=== PATIENT | female | born 1990 | race Caucasian/White ===

== ENCOUNTER → 2018-09-01 13:19 | Outpatient (CLI) | payer BC, SELFPAY ==
--- NOTE | 2018-09-01 13:23 | CA_ITS ---
PROCEDURE: 2-D M-mode and color Doppler study INDICATIONS FOR THE TEST: Chest pain + COPD Heart Murmur Tobacco Smokingex Palpitations Fatigue Syncope Edema+ Hypertension+Diabetes Mellitus Rheumatic Fever SOB+WHEELER Obesity+Hyperlipidemia Family History HD Additional History abn ekg TDS R/T BODY HABITUS PATIENT INFORMATION HEIGHT:71 WEIGHT:310 GENDER: Female B/P:158/106 2-D/M-MODE INTERPRETATION: 2-D MEASUREMENTS OBSERVED VALUES IN CMS Right Ventricular Dimension (RVDd) 2.0 Interventricular Septum (Thickness)(IVsd) 0.8 Left Ventricular Internal Dimensions(LVIDd) 5.6 Left Ventricular Posterior Wall (Thickness)(LVPWd) 1.0 Aortic Root 3.6 Aortic Cusp Separation 2.5 Left Atrial Dimensions (LAD) 3.9 2D 1. Left atrium is upper limit of normal size, left ventricle is normal size, visually estimated ejection fraction 55% with no regional wall motion abnormality, there is no concentric left ventricular hypertrophy. 2. The right atrium and right ventricle are relatively normal size and function. 3. The aortic, mitral and tricuspid valve are grossly normal. 4. The pulmonic valve is poorly visualized. 5. No significant pericardial effusion noted. DOPPLER INTERROGATION: Doppler interrogation of the aortic, mitral and tricuspid valvular presence of mild mitral and tricuspid regurgitation, tricuspid regurgitation jet velocity is inadequate for calculation of the right ventricular systolic pressure. Diastolic parameters are within normal range. CONCLUSION: 1. Normal left ventricular size, preserved left ventricular systolic function, visually estimated ejection fraction 55% with no regional wall motion abnormality, there is no concentric left ventricular hypertrophy present. Diastolic parameters are within normal range. 2. Mild mitral and tricuspid regurgitation 3. No significant pericardial effusion noted.
== END ==
PROVIDERS: PCP Family Medicine; Visit Provider Internal Medicine
DX: R06.09 Other forms of dyspnea (principal); I10 Essential (primary) hypertension; R07.89 Other chest pain; R94.31 Abnormal electrocardiogram [ECG] [EKG]; Z82.49 Family history of ischemic heart disease and other diseases of the circulatory system; Z87.891 Personal history of nicotine dependence
CPT/HCPCS: 93017; 93306

== ENCOUNTER → 2018-09-04 07:53 | Outpatient (CLI) | payer BC, SELFPAY ==
--- NOTE | 2018-09-04 07:55 | AS_ITS ---
Renal Arterial Duplex Indications: 405.91 Unspecified renovascular hypertension. IMPRESSIONS 1. Normal bilateral renal artery evaluation. 2. The right renal artery appears normal. 3. The left renal artery appears normal. 2cm left renal cyst with some irregularity of margins. Suggest 3month ultrasound follow up History: Risk factors: Hypertension. Obese. Complete renal arterial duplex. Duplex scan and Doppler flow study including spectral analysis, color and schuler scale imaging. Height: Height: 180.3cm. Height: 71in. Weight: Weight: 140.6kg. Weight: 309.4lb. Body mass index: BMI: 43.2kg/m^2. Body surface area: BSA: 2.72m^2. Location: Vascular laboratory. Patient status: Outpatient. Findings: Cyst in the left mid pole cortex. Dimensions: 2cm (L). Tables: Arterial flow: + +--------+--------+ Location V sys V ed + +--------+--------+ Right renal - proximal 108cm/s 35.2cm/s + +--------+--------+ Right renal - mid 140cm/s 59.3cm/s + +--------+--------+ Right renal - distal 103cm/s 37.2cm/s + +--------+--------+ Left renal - proximal 103cm/s 20.5cm/s + +--------+--------+ Left renal - mid 111cm/s 13.2cm/s + +--------+--------+ Left renal - distal 121cm/s 43.6cm/s + +--------+--------+ Right renal-origin 111cm/s 34.2cm/s + +--------+--------+ Left renal-origin 91.9cm/s 35.2cm/s + +--------+--------+ Aorta-prox 145cm/s -------- + +--------+--------+ Renal anatomy: + +------+------+ Left Right + +------+------+ Long axis 13.5cm 12.5cm + +------+------+ Short axis 7cm 8.3cm + +------+------+ Cortical thickness 1.9cm 1.8cm + +------+------+ Velocity ratios: + +-----+ V sys + +-----+ Right renal/aortic 1 + +-----+ Left renal/aortic 0.8 + +-----+ (Report amended ) Electronically signed by: Grzegorz Rodrigez [id number]
== END ==
PROVIDERS: PCP Family Medicine; Visit Provider Internal Medicine
DX: I10 Essential (primary) hypertension (principal); R07.89 Other chest pain; R06.09 Other forms of dyspnea; R94.31 Abnormal electrocardiogram [ECG] [EKG]; Z82.49 Family history of ischemic heart disease and other diseases of the circulatory system; Z87.891 Personal history of nicotine dependence
CPT/HCPCS: 93976

== ENCOUNTER → 2018-09-08 17:15 | Outpatient (CLI) | payer BC, SELFPAY | PROVIDERS: PCP Family Medicine; Visit Provider Family Medicine | DX: G47.30 Sleep apnea, unspecified (principal); G47.10 Hypersomnia, unspecified; I10 Essential (primary) hypertension; E66.9 Obesity, unspecified | CPT/HCPCS: G0399 ==

== ENCOUNTER → 2022-08-10 17:13 | Outpatient (CLI) | payer BC, SELFPAY ==
--- NOTE | 2022-08-10 17:18 | US_ITS ---
FINAL REPORT TECHNIQUE: Limited sonographic images of the thyroid were obtained. CLINICAL HISTORY: THYROID NODULE FINDINGS: There is a mildly heterogeneous thyroid parenchyma. The right lobe of the thyroid measures 1.2 x 1.4 x 5.4 cm. There are several tiny calcified nodules measuring up to 2 mm in greatest dimension consistent with TI-RADS category 4. The left lobe of the thyroid measures 3.3 x 4.1. There is a dominant, complex heterogeneous mass which is mixed cystic and solid measuring 5.3 x 2.9 cm consistent with TI-RADS category 3. The remainder of the left lobe is unremarkable. The isthmus measures 0.53 cm. IMPRESSION: Dominant nodule in the left thyroid lobe consistent with TI-RADS category 3. Recommend needle sampling. Reviewed, Interpreted and Dictated by Mati Monique MD Transcribed by Daniela Aguirre Authenticated and [facility]
== END ==
LOC: RAD 17:14
PROVIDERS: PCP Family Medicine; Visit Provider Family Medicine
DX: E04.1 Nontoxic single thyroid nodule (principal)
CPT/HCPCS: 76536

== ENCOUNTER → 2022-08-18 07:46 | Outpatient (CLI) | payer BC, SELFPAY ==
--- NOTE | 2022-08-18 07:50 | US_ITS ---
FINAL REPORT CLINICAL HISTORY: THYROID NODULE FNA left lobe Weston VILLARREAL FINDINGS: ULTRASOUND GUIDED THYROID BIOPSY HISTORY: Left thyroid mass. TECHNIQUE: Informed consent was obtained from the patient. Timeout procedure was performed prior to beginning. Limited sonographic evaluation of thyroid gland was performed to localize lesion of interest. The neck was prepped in a routine sterile fashion and locally anesthetized with 1% lidocaine. Initially, approximately 12 mL of fluid was aspirated and sent to the laboratory for analysis. FNA was performed with 25-gauge needle under direct sonographic visualization. 4 passes were made. Cytology is pending. Procedure was well tolerated. CONCLUSION: 1. Technically successful thyroid fine needle aspiration of a left thyroid mass. Reviewed, Interpreted and Dictated by Dedrick Saleh III, MD Transcribed by Kayla Crow PA-C Authenticated and [facility]
== END ==
LOC: RAD 07:46
PROVIDERS: PCP Family Medicine; Visit Provider Family Medicine
DX: E04.1 Nontoxic single thyroid nodule (principal)
CPT/HCPCS: 10021; 76536; 76942

== ENCOUNTER → 2023-01-18 14:19 | Outpatient (CLI) | payer BC, SELFPAY ==
[2023-01-18 14:56] LABS: Basophils % 0.4 % (0.1-2.0); Eosinophils # 0.2 K/mm3 (0.0-0.4); Eosinophils % 1.7 % (0.1-12.0); Hematocrit 42.8 % (37.0-47.0); Lymphocytes # 2.8 K/mm3 (0.7-4.5); Lymphocytes % 30.3 % (10-50); Mean Corpuscular HGB Conc 32.6 g/dL (31.8-35.4); Mean Corpuscular Hemoglobin 28.7 pg (27.0-31.2); Mean Corpuscular Volume 87.9 fl (81-99); Mean Platelet Volume 7.4 fl (7.4-10.4); Monocytes # 0.6 K/mm3 (0.1-1.0); Neutrophils # 5.8 K/mm3 (1.8-7.8); Neutrophils % 61.7 % (37.0-80.0); Platelet Count 274 K/mm3 (142-424); Red Blood Count 4.87 M/mm3 (4.20-5.40); Red Cell Distribution Width 12.9 % (11.5-17.5); White Blood Count 9.4 K/mm3 (4.8-10.8)
[2023-01-18 15:10] LABS: Hemoglobin A1C 5.7 % (4.0-6.0)
== END ==
PROVIDERS: PCP Family Medicine; Visit Provider Obstetrics & Gynecology Reproductive Endocrinology
DX: N91.3 Primary oligomenorrhea (principal); N92.5 Other specified irregular menstruation
CPT/HCPCS: 36415; 83036; 85025; 86850

== ENCOUNTER 2025-03-29 08:31 | Outpatient (CLI) | payer BC, SELFPAY ==
--- OUTSIDE RECORDS SUMMARY | 2023-10-19 10:30 | XMS_ITS ---
Author Organization Susy Address [address] [facility] [address] [place] [phone] Care Team Providers Care Delimer Name Role Phone Missael Wilson Primary Care Provider Allergies Allergen (clinical drug ingredient) Drug/Non Drug Allergy documented on EMR Reaction Allergy Type Onset Date Status metformin metFORMIN diarrhea Drug Allergy Active REASON FOR VISIT blood pressure running high Medications Medication SIG (Take, Route, Frequency, Duration) Notes Start Date End Date Status busPIRone HCl 7.5 MG 1 tablet Orally Twice a day; Duration: 30 day(s) 10/19/2023 Active medroxyPROGESTERone Acetate 10 MG 1 tab(s) orally once a day; Duration: 10 day(s) Not-Taking Citalopram Hydrobromide 40 MG 1 tab(s) o rally once a day; Duration: 90 days Active Labetalol HCl 100 MG 1 tablet Orally Twice a day; Duration: 30 day(s) 10/19/2023 Active amLODIPine Besylate 10 MG 1 tab(s) orall y once a day Active metFORMIN HCl ER 500 MG 1 tab(s) orally once a day; Duration: 90 days Active Melatonin 5 MG as directed Orally 07/29/2023 Active Vital Signs Weight 285.4 lbs 10/19/2023 Blood pressure systolic 154 mm Hg 10/19/19 24 Blood pressure diastolic 98 mm Hg 024 Heart Rate 116 /min 10/19/2023 Height 70 in 10/19/2023 BMI 40.95 kg/m2 10/19/2023 Encounters Encounter Location Date Provider Diagnosis [facility] [address] [place] [phone] 10/19/2023 Missael Wilson Essential hypertensi on I10 and Anxiety F41.9 Assessments Encounter Date Diagnosis (ICD Code) Assessment Notes Treatment Notes Treatment Clinical Notes Section Notes 10/19/2023 Essential hypertension (ICD-10 - I10) 10/19/2023 Anxiety (ICD-10 - F41.9) Plan Of Treatment Medication Medication Name Sig Start Date Stop Date Notes busPIRone HCl 7.5 MG 1 tablet Orally Twi ce a day; Duration: 30 day(s) 10/19/2023 Labetalol HCl 100 MG 1 tablet Orally Twi ce a day; Duration: 30 day(s) 10/19/2023 amLODIPine Besylate 10 MG 1 tab(s) orally once a day Next Appt Details Follow Up: via phone to repo rt progress, Reason: Provider Name:Missael Cornelius ry, 04/17/2025 09:00:00 AM, [address] [facility] [address], [place], [place], [phone], Progress Notes * Jessica STANFORDDOB:[birth year] (34 yo F)Acc No.[id number]:10/19/2023 Progress Notes Patient: Leigh ELLINGTONecca Provider: Nano Wilson M.D. :1990 A ge:33 Y S ex:Female Date:10/19/2023 Address:[address] [place] [address], [place], [id number] Subjective: * Chief Complaints: * 1 . Blood pressure running high. * HPI: C ardiology: 33 year old female presents with c/o Blood Pressure Elevated?Pt complains of elevated bp for 2-3 weeks. States she has been getting chest pain off and on as well. Pt does have log with her today. Pt would like new bp medication. P sychology: c/o Anxiety P t would like to change Citalopram to a different medication today. States it is causing heart palpitations and she cannot just stop taking it.? * ROS: D ERMATOLOGY: no R elizabeth. n o H prabhjot. G ASTROENTEROLOGY: no N ausea. n o V omiting. U ROLOGY: no D ifficulty urinating. n o B lood in urine. * Medical History: H ypertension, 2010, Type 2 Diabetes, 2020, Depression, Anxiety, Insomnia. * Surgical History: D ental Surgery 06/2015, LT Chest Lipoma Removal 05/2018. * Hospitalization/Major Diagno stic Procedure: H igh Blood Pressure- [facility] ER 10/28/2014. * Family History: F ather: alive 50 yrs, HBP, Diabetes. M other: alive 51 yrs, bad back. 2 brother(s) . . * Social History: C URRENT TOBACCO USE S moking Status: P atient does smoke, p acks per day: 1 ,?number of cigarettes per day: 1 5, S palmer age of: 1 8, S moking preference: cigarettes. C affeine: yes, frequency: Diet Pepsi or Diet Coke on occasion. Home smoke detector use: yes. Past smoking status: yes, PPD: 1/2 ppd. qd , years: 4 ,determination:. Alcohol: No. * Medications: T aking metFORMIN HCl ER 500 MG Tablet Extended Release 24 Hour 1 tab(s) orally once a day , Taking amLODIPine Besylate 10 MG Tablet 1 tab(s) orally once a day , Taking Melatonin 5 MG Tablet Disintegrating as directed Orally , Taking Citalopram Hydrobromide 40 MG Tablet 1 tab(s) orally once a day , Not-Taking medroxyPROGESTERone Acetate 10 MG Tablet 1 tab(s) orally once a day , Medication List reviewed and reconciled with the patient * Allergies: m etFORMIN: diarrhea - Side Effects. Objective: * Vitals: W t:285.4, Temp:98.0, BP:154/98, HR:116, Nurse:kush, Ht: 70, BMI:40.95. * Examination: P sychology: General Appearance: N AD. G rooming : a dequate.?Eye contact : tori lambert. M ood : p leasant. H eart: R SR. L ungs: c lear to auscultation. Assessment: * Assessment: 1. E ssential hypertension - I10 (Primary) 2 . A nxiety - F41.9 ? Plan: * Treatment: 2. A nxiety Start busPIRone HCl Tablet, 7.5 MG, 1 tablet, Orally, Twice a day, 30 day(s), 60 Tablet, Refills 0.? * Follow Up: v ia phone to report progress * Images: Billing Information: * Visit Code: 63625 Office Visit, Est Pt., Level 3. * Procedure Codes: * Electronic signature of Madison Wilson MD on 03/29/2025 at 08:33 AM EST Sign off status: Pending * Provider: Nano Wilson M.D. Date: 0 10/19/2023 Generated for Demetrio zimmer/Renaldo/Checosmitting on: 05/29/2024 08:33 AM EST History and Physical Notes * HPI (History of Present Illness) Category Sub-Category Detail Notes Category Not es Cardiology Blood Pressure Elevated Pt compl ains of elevated bp for 2-3 weeks. States she has been getting chest pain off and on as well. Pt does have log with her today. Pt would like new bp medication Psychology Anxiety Pt would like to change Citalopram to a different medication today. States it is causing heart palpitations and she cannot just stop taking it Examination Category Sub-Category Detail Notes Category Not es Psychology Heart: RSR Lungs: clear to auscultatio n General Appearance: NAD Grooming : adequate Eye contact : normal Mood : pleasant
--- OUTSIDE RECORDS SUMMARY | 2024-02-07 05:30 | XMS_ITS ---
Author Organization Jelly Address [address] [facility] [address] [facility] [address] [place] [phone] Care Team Providers Care Tractor Driver Name Role Phone Missael Wilson Primary Care Provider REASON FOR VISIT 6 Month Check Up Encounters Encounter Location Date Provider Diagnosis [facility] [address] [facility] 36 [facility] [address] [place] [phone] 02/07/2024 Missael Wilson Plan Of Treatment Next Appt Details Provider Name:Missael Cornelius ry, 04/17/2025 09:00:00 AM, [address] [facility] [address] [facility], [address], [place], [place], [phone], Progress Notes * Jessica STANFORDDOB:[birth year] (34 yo F)Acc No.[id number]:02/07/2024 Progress Notes Patient: Jessica ELLINGTON Provider: Nano Wilson M.D. :1990 A ge:33 Y S ex:Female Date:02/07/2024 Address:[address], [id number] Subjective: * Chief Complaints: * 1 . 6 Month Check Up. * Medical History: Objective: * Vitals: Assessment: Plan: * Treatment: * Images: Billing Information: * Visit Code: * Procedure Codes: * Electronic signature of Madison Wilson MD on 03/29/2025 at 08:33 AM EST Sign off status: Pending * Provider: Nano Wilson M.D. Date: Generated for Demetrio zimmer/Renaldo/eTransmitting on: 1 05/29/2024 08:33 AM EST
--- OUTSIDE RECORDS SUMMARY | 2024-10-12 09:00 | XMS_ITS ---
Author Organization [facility] Address [address] [facility] [address] [place] [id number] Care Team Providers Care User Experience Team Lead Name Role Phone Missael Wilson Primary Care Provider [phone] Allergies Allergen (clinical drug ingredient) Drug/Non Drug Allergy documented on EMR Reaction Allergy Type Onset Date Status metformin metFORMIN diarrhea Drug Allergy Active Results Component Value Reference Range Notes Glucose (In-House) Reviewed date:10/14/2024 06:12:55 PM Interpretation:111 Normal Performing Lab: Notes/Report: 111 Normal blood glucose 111 74 - 106 mg/dL Glycohemoglobin A1c (in hous e) Reviewed date:10/14/2024 06:12:55 PM Interpretation:5.9% Normal Performing Lab: Notes/Report: 5.9% Normal glycohemoglobin 5.9% 5 - 6.5 % P-Comprehensive Metabolic Pa ivan (CMP) Reviewed date:10/14/2024 06:12:55 PM Interpretation: Normal Performing Lab: Notes/Report: Test performed by [facility], [facility] [facility] , [address], [place] [address] Joe Hurtado MD, Res Habilitation Assistant CLIA: [id number] Sodium 137 135-145 mmol/L Potassium 4.0 3.5-5.3 mmol/L Chloride 99 97-108 mmol/L CO2 23 22-32 mmol/L Glucose 105 65-99 mg/dL BUN 12 6-20 mg/dL Creatinine 0.77 0.50-1.00 mg/dL Calcium 9.7 8.6-10.4 mg/dL eGFR by Creatinine 102 >59 mL/min/1.73m2 Protein 6.8 6.0-8.3 g/dL Albumin 4.7 3.5-5.3 g/dL Alkaline Phosphatase 65 35-121 IU/L ALT (SGPT) 16 <5-47 IU/L AST (SGOT) 19 <5-40 IU/L Bilirubin, Total 0.4 <0.2-1.2 mg/dL A/G Ratio 2.2 1.1-2.5 P-Lipid Panel Reviewed date:10/14/2024 06:12:55 PM Interpretation:Abnormal Performing Lab: Notes/Report: Test performed by [facility] [address] , [place] [address] Joe Hurtado MD, Res Habilitation Assistant CLIA: [id number] Cholesterol 239 <200 mg/dL Triglycerides 262 <150 mg/dL HDL Cholesterol 39 >39 mg/dL Cholesterol / HDL Ratio 6.13 0.00-4.44 Ratio Non-HDL Cholesterol 200 <130 mg/dL LDL Cholesterol (Calculation) 148 <130 mg/dL LDL Cholesterol Levels* Less than 100 mg/dL Optimal 100 to 129 mg/dL Near Optimal/ Above Optimal 130 to 159 mg/dL Borderline High 160 to 189 mg/dL High 190 mg/dL and above Very High * Categories as recommended by the 2004 ATPIII guidelines LDL/HDL Ratio 3.8 <3.3 Ratio LDL Cholesterol Patient History Test Date: 07/29/2023 LDL Results: 101 Units: mg/dL % Change: - Test Date: 10/12/2024 LDL Results: 148 Units: mg/dL % Change: +46% P-TSH reflex to FT4 Reviewed date:10/14/2024 06:12:55 PM Interpretation: Normal Performing Lab: Notes/Report: Test performed by [facility] [address] [place], [place] [address] , [place] [address] Joe Hurtado MD, Res Habilitation Assistant CLIA: [id number] TSH reflex to FT4 3.17 0.43-5.25 mU/L P-Microalbumin/Creatinine, R andom Urine Sample Reviewed date:10/14/2024 06:12:55 PM Interpretation: Normal Performing Lab: Notes/Report: Test performed by [facility] [address] [place], [place] [address] , [address], [place] [address] Joe Hurtado MD, Res Habilitation Assistant CLIA: [id number] Albumin/Creatinine Ratio, Urine 35 0-30 ug/m g Microalbumin, Urine, Random 5.3 Creatinine, Urine 150.8 REASON FOR VISIT check up Medications Medication SIG (Take, Route, Frequency, Duration) Notes Start Date End Date Status metFORMIN HCl ER 500 MG TAKE 1 TABLET BY MOUTH ONCE DAILY; Duration: 90 days Pt needs appt Active amLODIPine Besylate 10 MG TAKE 1 TABLET BY MOUTH ONCE DAILY; Duration: 90 days pt needs appt Active Labetalol HCl 100 MG 1 tablet Orally Twi ce a day; Duration: 90 days Active Citalopram Hydrobromide 40 MG 1 tab(s) orally once a day; Duration: 90 days Active Vital Signs Weight 276.6 lbs 10/12/2024 Blood pressure systolic 140 mm Hg 10/13/19 25 Blood pressure diastolic 90 mm Hg 025 Heart Rate 87 /min 10/12/2024 Height 70 in 10/12/2024 BMI 39.68 kg/m2 10/12/2024 Encounters Encounter Location Date Provider Diagnosis Jelly [address] [facility] [address] [facility] [address] [place] [id number] 10/12/2024 Missael Wilson Essential hypertensi on I10 ; Pure hypercholesterolemia E78.00 ; Type 2 diabetes mellitus without complication, without long-term current use of insulin E11.9 ; Anxiety F41.9 and Right shoulder pain M25.511 Assessments Encounter Date Diagnosis (ICD Code) Assessment Notes Treatment Notes Treatment Clinical Notes Section Notes 10/12/2024 Essential hypertensi on (ICD-10 - I10) 10/12/2024 Pure hypercholesterolemia (ICD-10 - E78.00) 10/12/2024 Type 2 diabetes sarah itus without complication, without long-term current use of insulin (ICD-10 - E11.9) 10/12/2024 Anxiety (ICD-10 - F41.9) 10/12/2024 Right shoulder pain (ICD-10 - M25.511) Plan Of Treatment Medication Medication Name Sig Start Date Stop Date Notes metFORMIN HCl ER 500 MG TAKE 1 TABLET BY MOUTH ONCE DAILY; Duration: 90 days Pt needs appt amLODIPine Besylate 10 MG TAKE 1 TABLET BY MOUTH ONCE DAILY; Duration: 90 days pt needs appt Labetalol HCl 100 MG 1 tablet Orally Twi ce a day; Duration: 90 days Citalopram Hydrobromide 40 MG 1 tab(s) orally once a day; Duration: 90 days Next Appt Details Follow Up: 6 Months, Reason: Provider Name:Missael Cornelius , 04/17/2025 09:00:00 AM, [address] [facility] [address] [facility], [address], [place], [id number], Progress Notes * Jessica STANFORDDOB:[birth year] (34 yo F)Acc No.[id number]:10/12/2024 Progress Notes Patient: Jessica ELLINGTON Provider: Nano Wilson M.D. :1990 A ge:34 Y S ex:Female Date:10/12/2024 Address:[address] [place] [address], [id number] Subjective: * Chief Complaints: * 1 . Check up. * HPI: H PI: 34 year old female presents with c/o Patient is here today for?Pt is here today for a check up. Pt sts she does need refills. S houlder/Upper arm: c/o shoulder pain P t sts she has been having some rt shoulder pain since the beginning of last winter and sts it has not gotten better. * ROS: D ERMATOLOGY: no R elizabeth. [...] Diagno stic Procedure: H igh Blood Pressure- [facility] ER 10/28/2014. * Family History: F ather: [...] ,determination:. Alcohol: No. * Medications: T aking Labetalol HCl 100 MG Tablet 1 tablet Orally Twice a day , Taking metFORMIN HCl ER 500 MG Tablet Extended Release 24 Hour TAKE 1 TABLET BY MOUTH ONCE DAILY , Notes to Pharmacist: Pt needs appt, Taking amLODIPine Besylate 10 MG Tablet TAKE 1 TABLET BY MOUTH ONCE DAILY , Notes to Pharmacist: pt needs appt, Taking Citalopram Hydrobromide 40 MG Tablet 1 tab(s) orally once a day , Discontinued Melatonin 5 MG Tablet Disintegrating as directed Orally , Discontinued busPIRone HCl 7.5 MG Tablet 1 tablet Orally Twice a day , Discontinued medroxyPROGESTERone Acetate 10 MG Tablet 1 tab(s) orally once a day , Medication List reviewed and reconciled with the patient * Allergies: m etFORMIN: diarrhea - Side Effects. Objective: * Vitals: W t: 276.6, Temp: 98.4, BP: 140/90, HR: 87, Nurse: mmh, Ht: 70, BMI:39.68. * Examination: C ardiology: General Appearance: p leasant, NAD. H eart sounds: R RR, normal S1, S2. L ungs: c lear, no rales or wheezes. E xtremities: n o leg edema. S houlder / Upper arm: Shoulder: r ight. P alpation: t enderness over AC joint. R virgen of motion: n ormal flexion, extension & rotation. S trength: d iminished supraspinatus strength. Assessment: * Assessment: 1. E ssential hypertension - I10 (Primary) 2 . P ure hypercholesterolemia - E78.00 3 . T ype 2 diabetes mellitus without complication, without long-term current use of insulin - E11.9 4 . A nxiety - F41.9 5 . R ight shoulder pain - M25.511 Plan: * Treatment: Value Reference Range A /G Ratio 2.2 1.1-2.5 - * A lbumin 4.7 3.5-5.3 - g/dL * A lkaline Phosphatase 65 35-121 - IU/L * A LT (SGPT) 16 <5-47 - IU/L * A ST (SGOT) 19 <5-40 - IU/L * B ilirubin, Total 0.4 <0.2-1.2 - mg/dL * B UN 12 6-20 - mg/dL * C alcium 9.7 8.6-10.4 - mg/dL * C hloride 99 97-108 - mmol/L * C O2 23 22-32 - mmol/L * C reatinine 0.77 0.50-1.00 - mg/dL * G lucose 105 H 65-99 - mg/dL * P otassium 4.0 3.5-5.3 - mmol/L * S odium 137 135-145 - mmol/L * P rotein 6.8 6.0-8.3 - g/dL * e GFR by Creatinine 102 >59 - mL/min/1.73m2 * Missael Wilson 10/14/2024 0 6:12:08 PM EDT > Sent to to inform. ?LAB: P-Microalbumin/Creatinine, Random Urine Sample (Collection Date & Time - 10/12/2024 01:29 PM)?Normal* Value Reference Range A lbumin/Creatinine Ratio, Urine 35 H 0-30 - ug /mg * C reatinine, Urine 150.8 - mg/dL * M icroalbumin, Urine, Random 5.3 - mg/dL * Missael Wilson 10/14/2024 0 6:12:08 PM EDT > Sent to to inform. 2.?Pure hypercholesterolemia?LAB: P-Comprehensive Metabolic Panel (CMP) (Collection Date & Time - 10/12/2024 01:29 PM)?Normal* Value Reference Range A /G Ratio 2.2 1.1-2.5 - * A lbumin 4.7 3.5-5.3 - g/dL * A lkaline Phosphatase 65 35-121 - IU/L * A LT (SGPT) 16 <5-47 - IU/L * A ST (SGOT) 19 <5-40 - IU/L * B ilirubin, Total 0.4 <0.2-1.2 - mg/dL * B UN 12 6-20 - mg/dL * C alcium 9.7 8.6-10.4 - mg/dL * C hloride 99 97-108 - mmol/L * C O2 23 22-32 - mmol/L * C reatinine 0.77 0.50-1.00 - mg/dL * G lucose 105 H 65-99 - mg/dL * P otassium 4.0 3.5-5.3 - mmol/L * S odium 137 135-145 - mmol/L * P rotein 6.8 6.0-8.3 - g/dL * e GFR by Creatinine 102 >59 - mL/min/1.73m2 * Missael Wilson 10/14/2024 0 6:12:08 PM EDT > Sent to to inform. ?LAB: P-Lipid Panel (Collection Date & Time - 10/12/2024 01:29 PM)?Abnormal * Value Reference Range C holesterol / HDL Ratio 6.13 H 0.00-4.44 - Ratio * C holesterol 239 H <200 - mg/dL * H DL Cholesterol 39 L >39 - mg/dL * L DL Cholesterol (Calculation) 148 H <130 - mg/d L * L DL/HDL Ratio 3.8 H <3.3 - Ratio * N on-HDL Cholesterol 200 H <130 - mg/dL * T riglycerides 262 H <150 - mg/dL * Missael Wilson T 10/14/2024 0 6:12:08 PM EDT > Patient needs to follow a low cholesterol diet. Sent to to inform. 3.?Type 2 diabetes mellitus without complication, without long-term current use of insulin? Refill metFORMIN HCl ER Tablet Extended Release 24 Hour, 500 MG, TAKE 1 TABLET BY MOUTH ONCE DAILY,90 days, 90, Refills 1, Notes to Pharmacist: Pt needs appt.?LAB: P-Comprehensive Metabolic Panel (CMP) (Collection Date & Time - 10/12/2024 01:29 PM)?Normal* Value Reference Range A /G Ratio 2.2 1.1-2.5 - * A lbumin 4.7 3.5-5.3 - g/dL * A lkaline Phosphatase 65 35-121 - IU/L * A LT (SGPT) 16 <5-47 - IU/L * A ST (SGOT) 19 <5-40 - IU/L * B ilirubin, Total 0.4 <0.2-1.2 - mg/dL * B UN 12 6-20 - mg/dL * C alcium 9.7 8.6-10.4 - mg/dL * C hloride 99 97-108 - mmol/L * C O2 23 22-32 - mmol/L * C reatinine 0.77 0.50-1.00 - mg/dL * G lucose 105 H 65-99 - mg/dL * P otassium 4.0 3.5-5.3 - mmol/L * S odium 137 135-145 - mmol/L * P rotein 6.8 6.0-8.3 - g/dL * e GFR by Creatinine 102 >59 - mL/min/1.73m2 * Missael Wilson 10/14/2024 0 6:12:08 PM EDT > Sent to to inform. ?LAB: P-TSH reflex to FT4 (Collection Date & Time - 10/12/2024 01:29 PM)? Normal* Value Reference Range T SH reflex to FT4 3.17 0.43-5.25 - mU/L * Missael Wilson 10/14/2024 0 6:12:08 PM EDT > Sent to to inform. ?LAB: Glucose (In-House) (Collection Date & Time - 10/12/2024)?111 Normal* Value Reference Range b lood glucose 111 74 - 106 mg/dL * Briana Tomas 10/12/2024 02:36 :58 PM EDT > Provider reviewed results while patient in office. Missael Wilson 10/14/2024 06:12:08 PM EDT > Sent to to inform. ?LAB: Glycohemoglobin A1c (in house) (Collection Date & Time - 10/12/2024)? 5.9% Normal* Value Reference Range g lycohemoglobin 5.9% 5 - 6.5 % * Briana Tomas 10/12/2024 02:37 :19 PM EDT > Missael Wilson 10/14/2024 06:12:08 PM EDT > Sent to to inform. 4.?Anxiety? Refill Citalopram Hydrobromide Tablet, 40 MG, 1 tab(s), orally, once a day, 90 days, 90, Refills 1. ? * Procedure Codes: 8 2950 GLUCOSE TEST, 20658 GLYCATED HEMOGLOBIN TEST, Modifiers: QW , G8950 PREHTN/HTN BP DOC INDCD F/U DOC, G8753 MOST RECENT SYSTOLIC BP >= 140MM HG, G8755 MOST RECENT DIASTOLIC BP >= 90MM HG, 3044F HG A1C LEVEL LT 7.0% * Follow Up: 6 Months * Images: Billing Information: * Visit Code: 34302 Office Visit, Est Pt., Level 4. * Procedure Codes: 90143 GLUCOSE TEST. 21710 GLYCATED HEMOGLOBIN TEST. Modifiers: QW G8950 PREHTN/HTN BP DOC INDCD F/U DOC. G8753 MOST RECENT SYSTOLIC BP >= 140MM HG. G8755 MOST RECENT DIASTOLIC BP >= 90MM HG. 3044F HG A1C LEVEL LT 7.0%. * Electronic signature of Madison Wilson MD on 03/29/2025 at 08:33 AM EST Sign off status: Pending * Provider: Nano Wilson M.D. Date: 0 10/12/2024 Generated for Rimai mesha/Renaldo/eTransmitting on: 05/29/2024 08:33 AM EST History and Physical Notes * HPI (History of Present Illness) Category Sub-Category Detail Notes Category Not es Shoulder/Upper arm shoulder pain Pt sts she min s been having some rt shoulder pain since the beginning of last winter and sts it has not gotten better HPI Patient is here toda y for Pt is here today for a check up. Pt sts she does need refills Examination Category Sub-Category Detail Notes Category Not es Cardiology Lungs: clear, no rales or wheezes Heart sounds: RRR, normal S1, S2 Extremities: no leg edema General Appearance: pleasant, NAD Shoulder / Upper arm Range of motion: normal flexion, extension & rotation Strength: diminished supraspin atus strength Shoulder: right Palpation: tenderness over AC j oint
--- OUTSIDE RECORDS SUMMARY | 2025-01-02 05:30 | XMS_ITS ---
Author Organization [facility] Address [address] [facility] [address] [place] [id number] Care Team Providers Care Digital Business Analyst Name Role Phone Missael Wilson Primary Care Provider [phone] Sirisha Wilder Unavailable [phone] Allergies Allergen (clinical drug ingredient) Drug/Non Drug Allergy documented on EMR Reaction Allergy Type Onset Date Status metformin metFORMIN diarrhea Drug Allergy Active Results Component Value Reference Range Notes Influenza Screen (in house) Reviewed date:01/02/2025 12:46:31 PM Interpretation: Performing Lab: Notes/Report: results neg Rapid Strep- Inhouse Reviewed date:01/02/2025 12:46:31 PM Interpretation: Performing Lab: Notes/Report: strep test neg CBC Fingerstick (in house) Reviewed date:01/02/2025 12:46:31 PM Interpretation: Performing Lab: Notes/Report: wbc 7.9 3.5 - 10 lym 29.0% 15 - 50 mid 5.7% 2 - 15 gran 65.3% 35 - 80 rbc 4.66 3.5 - 5.5 hgb 13.9 11.5 - 16.5 hct 40.4 35 - 55 mcv 86.7 75 - 100 mch 29.7 25 - 35 mchc 34.3 31 - 38 plat 243 100 - 400 Covid test (in house) Reviewed date:01/02/2025 12:46:31 PM Interpretation: Performing Lab: Notes/Report: Result: neg REASON FOR VISIT poss strep Medications Medication SIG (Take, Route, Frequency, Duration) Notes Start Date End Date Status Labetalol HCl 100 MG 1 tablet Orally Twi ce a day; Duration: 90 days Active amLODIPine Besylate 10 MG TAKE 1 TABLET BY MOUTH ONCE DAILY; Duration: 90 days pt needs appt Active Citalopram Hydrobromide 40 MG 1 tab(s) orally once a day; Duration: 90 days Active metFORMIN HCl ER 500 MG TAKE 1 TABLET BY MOUTH ONCE DAILY; Duration: 90 days Pt needs appt Active Vital Signs Weight 279.2 lbs 01/02/2025 Blood pressure systolic 132 mm Hg 01/03/20 25 Blood pressure diastolic 82 mm Hg 025 Heart Rate 88 /min 01/02/2025 Height 70 in 01/02/2025 BMI 40.06 kg/m2 01/02/2025 Encounters Encounter Location Date Provider Diagnosis [facility] [address] [facility] [address] [facility] [address] [place] [id number] 01/02/2025 Sirisha Mccoynat Acute URI J06.9 Assessments Encounter Date Diagnosis (ICD Code) Assessment Notes Treatment Notes Treatment Clinical Notes Section Notes 01/02/2025 Acute URI (ICD-10 - J06.9) Patient has cough and congestion medication at home. Plan Of Treatment Treatment Notes Assessment Notes Acute URI Patient has cough an d congestion medication at home. Next Appt Details Follow Up: prn, Reason: Provider Name:Missael Cornelius , 04/17/2025 09:00:00 AM, [address] [facility] [address] [facility], [address], [place], [id number], Progress Notes * Jessica STANFORDDOB:[birth year] (34 yo F)Acc No.[id number]:01/02/2025 Progress Notes Patient: Nano Jessica NIETO Provider: CHERELLE Bernal :1990 A ge:34 Y S ex:Female Date:01/02/2025 Address:[address] [place] [address], [id number] Pcp:Missael Wilson Subjective: * Chief Complaints: * 1 . Poss strep. * HPI: E NT/respiratory: Pt states these symptoms started Tuesday. 34 year old female presents with c/o sore throat s wallowing painful, feels scratchy. c/o nasal congestion. c/o ear pain r ight side. c/o body aches aching all over . Denies : cough. D enies : Fever. D enies : Chest Pain.?Denies : Short of Breath. D enies : headache. D enies : chest congestion. D enies : dizziness. G astroenterology: Pt states these symptoms stared the weekend. c/o Nausea w ithout food. Denies : Vomiting. D enies : Diarrhea. * ROS: D ERMATOLOGY: no R elizabeth. n o H prabhjot. G ASTROENTEROLOGY: no N ausea. n o V omiting. n o D iarrhea.? U ROLOGY: no D ifficulty urinating. n o B lood in urine. * Medical History: H ypertension, 2010, Type 2 Diabetes, 2020, Depression, Anxiety, Insomnia. * Surgical History: D ental Surgery 06/2015, LT Chest Lipoma Removal 05/2018. * Hospitalization/Major Diagno stic Procedure: H igh Blood Pressure- [facility] ER 10/28/2014. * Family History: F ather: [...] tablet Orally Twice a day , Taking amLODIPine Besylate 10 MG Tablet TAKE 1 TABLET BY MOUTH ONCE DAILY , Notes to Pharmacist: pt needs appt, Taking metFORMIN HCl ER 500 MG Tablet Extended Release 24 Hour TAKE 1 TABLET BY MOUTH ONCE DAILY , Notes to Pharmacist: Pt needs appt, Taking Citalopram Hydrobromide 40 MG Tablet 1 tab(s) orally once a day , Medication List reviewed and reconciled with the patient * Allergies: m etFORMIN: diarrhea - Side Effects. Objective: * Vitals: W t: 279.2, Temp: 98.3, BP: 132/82, HR: 88, Nurse: pe, Ht: 70, BMI:40.06. * Examination: E NT/Respiratory: General Appearance: N AD. E ars: a uditory canals normal bilaterally, TM's WNL. N ose : t urbinates red, congested. S inuses : n on tender bilaterally. O ral cavity : e rythema without exudate on pharynx. N evelyn : s upple, no cervical lymphadenopathy. H eart : R RR, normal S1 S2, no murmurs. L ungs: c lear to auscultation bilaterally. Assessment: * Assessment: 1. Antonio green URI - J06.9 (Primary) Plan: * Treatment: Value Reference Range r esults neg * Lisbet Yuan 01/02/2025 1 2:07:39 PM EDT > Provider reviewed results while patient in office. ?LAB: Rapid Strep- Inhouse (Collection Date & Time - 01/02/2025)* Value Reference Range s trep test neg * Lisbet Yuan 01/02/2025 1 2:07:15 PM EDT > Provider reviewed results while patient in office. ?LAB: CBC Fingerstick (in house) (Collection Date & Time - 01/02/2025)* Value Reference Range w bc 7.9 3.5 - 10 * l ym 29.0% 15 - 50 * m id 5.7% 2 - 15 * g ran 65.3% 35 - 80 * r bc 4.66 3.5 - 5.5 * h gb 13.9 11.5 - 16.5 * h ct 40.4 35 - 55 * m cv 86.7 75 - 100 * m ch 29.7 25 - 35 * m chc 34.3 31 - 38 * p lat 243 100 - 400 * Lisbet Yuan 01/02/2025 1 2:07:54 PM EDT > Provider reviewed results while patient in office. ?LAB: Covid test (in house) (Collection Date & Time - 01/02/2025)* Value Reference Range R esult: neg * Lisbet Yuan 01/02/2025 1 2:06:48 PM EDT > Provider reviewed results while patient in office. Notes: Patient has cough and congestion medication at home.?? * Procedure Codes: 3 6416 CAPILLARY BLOOD DRAW, 91311 CBC WITH AUTO DIFF, 30427 Flu Test- Nasal Swab, Modifiers: QW , 00621 STREP A ASSAY W/OPTIC, Modifiers: QW , 00637 COVID TEST IN HOUSE, Modifiers: QW * Follow Up: p rn * Images: Billing Information: * Visit Code: 54037 Office Visit, Est Pt., Level 3. * Procedure Codes: 74593 CAPILLARY BLOOD DRAW. 88550 CBC WITH AUTO DIFF. 36429 Flu Test- Nasal Swab. Modifiers: QW 16642 STREP A ASSAY W/OPTIC. Modifiers: QW 33541 COVID TEST IN HOUSE. Modifiers: QW * Electronic signature of CHERELLE Choi on 03/29/2025 at 08:34 AM EST Sign off status: Pending * Provider: CHERELLE Bernal Date: 0 01/02/2025 Generated for Printi ng/Falainag/eTransmitting on: 1 05/29/2024 08:34 AM EST History and Physical Notes * HPI (History of Present Illness) Category Sub-Category Detail Notes Category Not es ENT/respiratory sore throat swallowing painful, feels scratchy ear pain right side Short of Breath Chest Pain cough Fever headache chest congestion nasal congestion dizziness body aches aching all over Gastroenterology Vomiting Diarrhea Nausea without food Examination Category Sub-Category Detail Notes Category Not es ENT/Respiratory Oral cavity : erythema without exudate on pharynx Sinuses : non tender bilateral ly Ears: auditory canals norm al bilaterally, TM's WNL Neck : supple, no cervical lymphadenopathy Heart : RRR, normal S1 S2, n o murmurs Lungs: clear to auscultatio n bilaterally General Appearance: NAD Nose : turbinates red, leisa ested
--- OUTSIDE RECORDS SUMMARY | 2025-03-14 04:30 | XMS_ITS ---
Author Organization [facility] Address [address] [facility] [address] [facility] [address] [place] [id number] Care Team Providers Care Land Lease Information Clerk Name Role Phone Poornima Wilsonian Primary Care Provider Allergies Allergen (clinical drug ingredient) Drug/Non Drug Allergy documented on EMR Reaction Allergy Type Onset Date Status metformin metFORMIN diarrhea Drug Allergy Active Results Component Value Reference Range Notes P-Comprehensive Metabolic Pa ivan (CMP) Reviewed date:03/15/2025 02:23:47 PM Interpretation:Glu 129 Performing Lab: Notes/Report: Test performed by [facility], [address] , [address], [place] [address] Joe Hurtado MD, Acetone Recovery Worker CLIA: [id number] Sodium 137 135-145 mmol/L Potassium 4.2 3.5-5.3 mmol/L Chloride 101 97-108 mmol/L CO2 26 20-32 mmol/L Glucose 129 65-99 mg/dL BUN 9 6-20 mg/dL Creatinine 0.73 0.50-1.00 mg/dL Calcium 9.2 8.6-10.4 mg/dL eGFR by Creatinine 109 >59 mL/min/1.73m2 Protein 6.7 6.0-8.3 g/dL Albumin 4.5 3.5-5.3 g/dL Alkaline Phosphatase 58 35-121 IU/L ALT (SGPT) 19 <5-47 IU/L AST (SGOT) 20 <5-40 IU/L Bilirubin, Total 0.4 <0.2-1.2 mg/dL A/G Ratio 2.0 1.1-2.5 P-Lipid Panel Reviewed date:03/15/2025 02:23:47 PM Interpretation:TC 229, Trigs 201, HDL 38, TC/HDL 6.03, Non-HDL 191, LDL 151, LDL/HDL 3.97 Performing Lab: Notes/Report: Test performed by [facility], [address] , [facility], [place] [address] Joe Hurtado MD, Acetone Recovery Worker CLIA: [id number] Lipid Panel Footnote See Below *Based on optimal reference values. Please refer to the DOS for additional information regarding diagnostic lipid reference ranges, patient management based on the recently updated lipid guidelines ([employer]/[place] [employer] Association Task Force on Clinical Practice Guidelines (2018), and pediatric diagnostic lipid reference values (<18 years old). Total Cholesterol 229 <200 mg/dL Triglycerides 201 <150 mg/dL HDL Cholesterol 38 >50 mg/dL Total Cholesterol / HDL Ratio* 6.03 <3.99 Rati o Non-HDL Cholesterol 191 <130 mg/dL LDL Cholesterol (Calculation) 151 <100 mg/dL LDL / HDL Ratio* 3.97 <1.99 Ratio LDL Cholesterol Patient History Test Date: 07/29/2023 LDL Results: 101 Units: mg/dL % Change: - Test Date: 10/12/2024 LDL Results: 148 Units: mg/dL % Change: +46% Test Date: 03/14/2025 LDL Results: 151 Units: mg/dL % Change: +2% REASON FOR VISIT yearly wellness visit for insurance Medications Medication SIG (Take, Route, Frequency, Duration) Notes Start Date End Date Status amLODIPine Besylate 10 MG TAKE 1 TABLET BY MOUTH ONCE DAILY; Duration: 90 days pt needs appt Active metFORMIN HCl ER 500 MG TAKE 1 TABLET BY MOUTH ONCE DAILY; Duration: 90 days Pt needs appt Active Citalopram Hydrobromide 40 MG 1 tab(s) orally once a day; Duration: 90 days Active Labetalol HCl 100 MG 1 tablet Orally Twi ce a day; Duration: 90 days Active Problems Problem Type SNOMED Code ICD Code Onset Dates Problem Status W/U Status Risk Notes Problem Sciatica (82999392) Lumbago with sciatica, left side (M54.42) Active confirmed Vital Signs Weight 284.4 lbs 03/14/2025 Blood pressure systolic 144 mm Hg 03/14/20 25 Blood pressure diastolic 82 mm Hg 025 Heart Rate 94 /min 03/14/2025 Height 70 in 03/14/2025 BMI 40.8 kg/m2 03/14/2025 Encounters Encounter Location Date Provider Diagnosis [facility] [address] [place], [place] [phone] 03/14/2025 Missael Wilson Well adult exam Z00. 00 ; Lumbago with sciatica, left side M54.42 ; Left leg weakness R29.898 and Morbid obesity E66.01 Assessments Encounter Date Diagnosis (ICD Code) Assessment Notes Treatment Notes Treatment Clinical Notes Section Notes 03/14/2025 Well adult exam (ICD-10 - Z00.00) 03/14/2025 Lumbago with sciatica, left side (ICD-10 - M54.42) 03/14/2025 Left leg weakness (ICD-10 - R29.898) 03/14/2025 Morbid obesity (ICD-10 - E66.01) Plan Of Treatment Pending Test Test Name Order Date MRI : Spine, Lumbosacral, without contra st 03/14/2025 Next Appt Details Follow Up: via phone to repo rt test results, Reason: Provider Name:Missael Cornelius ry, 04/17/2025 09:00:00 AM, [address] [facility] [address], [place], [place], [id number], Progress Notes * Jessica STANFORDDOB:[birth year] (34 yo F)Acc No.[id number]:03/14/2025 Physical Patient: Jessica ELLINGTON Provider: Nano Wilson M.D. :1990 A ge:34 Y S ex:Female Date:03/14/2025 Address:[address] [place] [address], [place], [id number] Subjective: * Chief Complaints: * 1 . Yearly wellness visit for insurance. * HPI: H PI: 34 year old female presents with c/o Patient is here today for?A scheduled check-up for insurance. Pt states she has had restless leg syndrome and back pain for a while now, over 1 year. She has seen a physical therapist in the past. She has been doing a home exercise program as well. She has some weakness in her left leg as well. * Medical History: H ypertension, 2010, Type 2 Diabetes, 2020, Depression, Anxiety, Insomnia. * Surgical History: D ental Surgery 06/2015, LT Chest Lipoma Removal 05/2018. * Hospitalization/Major Diagno stic Procedure: H igh Blood Pressure- [facility] ER 10/28/2014. * Family History: F ather: alive 50 yrs, HBP, Diabetes. M other: alive 51 yrs, bad back. 2 brother(s) . . * Social History: C URRENT TOBACCO USE: Yes S moking Status: P atient does smoke, p acks per day:?1, n umber of cigarettes per day: 1 5, S palmer age of: 1 8, S moking preference: c igarettes. C affeine: yes, frequency: Diet Pepsi or [...] Side Effects. Objective: * Vitals: W t: 284.4, Temp: 98.1, BP: 144/82, HR: 94, Nurse: LALITO, Ht: 70, BMI:40.8. * Examination: G eneral Examination: General Appearance: N AD. H EENT: u nremarkable.?Oral cavity: n o lesions, mucosa moist and WNL, no erythema. N evelyn: s upple, no lymphadenopathy. H eart: R SR. L ungs: c lear to auscultation. N eurologic Exam: stands and moves slowly due to pain, some weakness in the left leg. S kin: n ormal, no rash. P eripheral pulses: n ormal (2+) bilaterally. E xtremities: n o leg edema. ? Assessment: * Assessment: 1. W ell adult exam - Z00.00 (Primary) 2 . L umbago with sciatica, left side - M54.42 3 . L eft leg weakness - R29.898 4 . M orbid obesity - E66.01 Plan: * Treatment: Value Reference Range A /G Ratio 2.0 1.1-2.5 - * A lbumin 4.5 3.5-5.3 - g/dL * A lkaline Phosphatase 58 35-121 - IU/L * A LT (SGPT) 19 <5-47 - IU/L * A ST (SGOT) 20 <5-40 - IU/L * B ilirubin, Total 0.4 <0.2-1.2 - mg/dL * B UN 9 6-20 - mg/dL * C alcium 9.2 8.6-10.4 - mg/dL * C hloride 101 97-108 - mmol/L * C O2 26 20-32 - mmol/L * C reatinine 0.73 0.50-1.00 - mg/dL * G lucose 129 H 65-99 - mg/dL * P otassium 4.2 3.5-5.3 - mmol/L * S odium 137 135-145 - mmol/L * P rotein 6.7 6.0-8.3 - g/dL * e GFR by Creatinine 109 >59 - mL/min/1.73m2 * Leora Hale 03/15/2025 02: 23:41 PM EST > See phone encounter ?LAB: P-Lipid Panel (Collection Date & Time - 03/14/2025 09:17 AM)?TC 229, Trigs 201, HDL 38, TC/HDL 6.03, Non-HDL 191, LDL 151, LDL/HDL 3.97* Value Reference Range C holesterol / HDL Ratio 6.03 H <3.99 - Ratio * C holesterol 229 H <200 - mg/dL * H DL Cholesterol 38 L >50 - mg/dL * L DL Cholesterol (Calculation) 151 H <100 - mg/d L * L DL/HDL Ratio 3.97 H <1.99 - Ratio * N on-HDL Cholesterol 191 H <130 - mg/dL * T riglycerides 201 H <150 - mg/dL * L ipid Panel Footnote See Below - * Leora Hale 03/15/2025 02: 23:41 PM EST > See phone encounter 2.?Lumbago with sciatica, left side?Imaging: MRI : Spine, Lumbosacral, without contrast* Ella Fajardo 03/14/2025 10:3 0:04 AM EST > faxed to [facility] Scheduling 3.?Left leg weakness?Imaging: MRI : Spine, Lumbosacral, without contrast* Ella Fajardo 03/14/2025 10:3 0:04 AM EST > faxed to [facility] Scheduling * Follow Up: v ia phone to report test results * Images: Billing Information: * Visit Code: 63379 Preventive Care Est Pt 18-39. Modifiers: 25 31495 Office Visit, Est Pt., Level 2. * Procedure Codes: * Electronic signature of Madison Wilson MD on 03/29/2025 at 08:34 AM EST Sign off status: Pending * Provider: Nano Wilson M.D. Date: 05/14/2024 Generated for Demetrio zimmer/Renaldo/Zoraidaransmitting on: 05/29/2024 08:34 AM EST History and Physical Notes * HPI (History of Present Illness) Category Sub-Category Detail Notes Category Not es HPI Patient is here today for A sche duled check-up for insurance. Pt states she has had restless leg syndrome and back pain for a while now, over 1 year. She has seen a physical therapist in the past. She has been doing a home exercise program as well. She has some weakness in her left leg as well Examination Category Sub-Category Detail Notes Category Not es General Examination HEENT: unremarkable Heart: RSR Lungs: clear to auscultatio n Extremities: no leg edema General Appearance: NAD Skin: normal, no rash Neurologic Exam: stands and moves slo wly due to pain, some weakness in the left leg Neck: supple, no lymphaden opathy Oral cavity: no lesions, mucosa m oist and WNL, no erythema Peripheral pulses: normal (2+) bilatera lly
--- OUTSIDE RECORDS SUMMARY | 2025-03-29 08:33 | XMS_ITS | Patient Health Record ---
[facility] [address] [facility] [address] [facility] [address] [place] [phone] Care Team Providers Care Metal Spinner Name Role Phone Missael Wilson Primary Care Provider [phone] Dariusnat Sirisha Unavailable [phone] Allergies Allergen (clinical drug ingredient) Drug/Non Drug Allergy documented on EMR Reaction Allergy Type Onset Date Status metformin metFORMIN diarrhea Drug Allergy Active Results Component Value Reference Range Notes P-Lipid Panel Reviewed date:03/15/2025 02:23:47 PM Interpretation:TC 229, Trigs 201, HDL 38, TC/HDL 6.03, Non-HDL 191, LDL 151, LDL/HDL 3.97 Performing Lab: Notes/Report: CLIA: [id number] Joe Hurtado MD, Powerhouse Operator [address] [place] [address] , [address], [place] [address] Test performed by [facility], Issue Lipid Panel Footnote See Below *Based on optimal reference values. Please refer to the DOS for additional information regarding diagnostic lipid reference ranges, patient management based on the recently updated lipid guidelines ([place] [employer]/[place] [employer] Task Force on Clinical Practice [...] Results: 151 Units: mg/dL % Change: +2% P-Comprehensive Metabolic Pa ivan (CMP) Reviewed date:03/15/2025 02:23:47 PM Interpretation:Glu 129 Performing Lab: Notes/Report: Test performed by [facility] [address] [facility] , [address], [place] [address] Joe Hurtado MD, Powerhouse Operator CLIA: [id number] Sodium 137 135-145 mmol/L Potassium 4.2 3.5-5.3 [...] 0.4 <0.2-1.2 mg/dL A/G Ratio 2.0 1.1-2.5 Covid test (in house) Reviewed date:01/02/2025 12:46:31 PM Interpretation: Performing Lab: Notes/Report: Result: neg CBC Fingerstick (in house) Reviewed date:01/02/2025 [...] - 38 plat 243 100 - 400 Rapid Strep- Inhouse Reviewed date:01/02/2025 12:46:31 PM Interpretation: Performing Lab: Notes/Report: strep test neg Influenza Screen (in house) Reviewed date:01/02/2025 12:46:31 PM Interpretation: Performing Lab: Notes/Report: results neg P-Microalbumin/Creatinine, R andom Urine Sample Reviewed date:10/14/2024 06:12:55 PM Interpretation: Normal Performing Lab: Notes/Report: CLIA: [id number] Joe Hurtado MD, Powerhouse Operator [address] [place] [address] , [address], [place] [address] Test performed by [facility], [facility] Albumin/Creatinine Ratio, Urine 35 0-30 ug/m g Microalbumin, Urine, Random 5.3 Creatinine, Urine 150.8 P-TSH reflex to FT4 Reviewed date:10/14/2024 06:12:55 PM Interpretation: Normal Performing Lab: Notes/Report: Test performed by [facility] [address] [place] [address] [address], [place] [address] Joe Hurtado MD, Powerhouse Operator CLIA: [id number] TSH reflex to FT4 3.17 0.43-5.25 mU/L P-Lipid Panel Reviewed date:10/14/2024 06:12:55 PM Interpretation:Abnormal Performing Lab: Notes/Report: Test performed by [facility] [address], [place] [address] Joe Hurtado MD, Powerhouse Operator CLIA: [id number] Cholesterol 239 <200 mg/dL Triglycerides 262 <150 [...] Results: 148 Units: mg/dL % Change: +46% P-Comprehensive Metabolic Pa ivan (CMP) Reviewed date:10/14/2024 06:12:55 PM Interpretation: Normal Performing Lab: Notes/Report: Test performed by [facility] [address] , [address], [place] [address] Joe Hurtado MD, Powerhouse Operator CLIA: [id number] Sodium 137 135-145 mmol/L Potassium 4.0 3.5-5.3 [...] 0.4 <0.2-1.2 mg/dL A/G Ratio 2.2 1.1-2.5 Glycohemoglobin A1c (in hous e) Reviewed date:10/14/2024 06:12:55 PM Interpretation:5.9% Normal Performing Lab: Notes/Report: 5.9% Normal glycohemoglobin 5.9% 5 - 6.5 % Glucose (In-House) Reviewed date:10/14/2024 06:12:55 PM Interpretation:111 Normal Performing Lab: Notes/Report: 111 Normal blood glucose 111 74 - 106 mg/dL Medications Medication SIG (Take, Route, Frequency, Duration) Notes Start Date End Date Status metFORMIN HCl ER 500 MG 1 tablet with ev ening meal Orally Once a day; Duration: 90 days Active Labetalol HCl 100 MG 1 tablet Orally Twi ce a day; Duration: 90 days Active amLODIPine Besylate 10 MG 1 tablet Orall y Once a day; Duration: 90 days Active Citalopram Hydrobromide 40 MG 1 tab(s) orally once a day; Duration: 90 days Active Immunizations Vaccine Route Administration Date Status Comme nts COVID 19 Moderna Unknown 06/18/2020 Administered Fluzone Quad (6months&older) IM Intramuscular 02/25/2020 Administered Fluzone Quad (6months&older) IM Intramuscular 02/23/2021 Administered Tetanus Tdap-Adacel (over 7yrs) Unknown 01/18/2022 Administered Problems Problem Type SNOMED Code ICD Code Onset Dates Problem Status W/U Status Risk Notes Problem Essential hypertension (48433588) Essential hypertension (I10) Active confirmed Problem Morbid obesity (396236797) Morbid obesity (E66.01) Active confirmed Problem Anxiety (66127553) Anxiety (F41.9) Active confi rmed Problem Primary insomnia (4467387) Primary insomnia (F51.01) Active confirmed Problem Sciatica (06051473) Lumbago with sciatica, left side (M54.42) Active confirmed Problem Edema, generalized (942821227) Generalized edema (R60.1) Active confirmed Problem Thyroid nodule (607822510) Thyroid nodule (E04.1) Active confirmed Problem Hypersomnia (44299619) Hypersomnia (G47.10) Active confirmed Problem Tobacco user (207578380) Cigarette nicotine dependence without complication (F17.210) Active confirmed Problem Sciatica (21586220) Acute left-s ided low back pain with left-sided sciatica (M54.42) Active confirmed Problem Type II diabetes mellitus without complication (375341717) Type 2 diabetes mellitus without complication, without long-term current use of insulin (E11.9) Active confirmed Problem Pure hypercholesterolemia (862142411) Pure hypercholesterolemia (E78.00) Active confirmed Problem Obesity (726952648) Non morbid o besity (E66.9) Active confirmed Vital Signs Heart Rate 94 /min 03/14/2025 Blood pressure diastolic 82 mm Hg 03/14/2025 Height 70 in 03/14/2025 Blood pressure systolic 144 mm Hg 03/14/2025 Weight 284.4 lbs 03/14/2025 BMI 40.8 kg/m2 03/14/2025 Encounters Encounter Location Date Provider Diagnosis [facility] [address] [facility] [address] [place], [place] [phone] 10/12/2024 Missael Alloy Essential hypertensi on I10 ; Pure hypercholesterolemia E78.00 ; Type 2 diabetes mellitus without complication, without long-term current use of insulin E11.9 ; Anxiety F41.9 and Right shoulder pain M25.511 [facility] [address] [facility] [address] [place], [place] [phone] 01/02/2025 Sirisha Wilder Acute URI J06.9 [facility] [address] [facility] [address] [place], [place] [id number] 03/14/2025 Missael Alloy Well adult exam Z00. 00 ; Lumbago with sciatica, left side M54.42 ; Left leg weakness R29.898 and Morbid obesity E66.01 [facility] [address] [facility] [address] [place], [place] [id number] 10/08/2024 Missael Alloy [facility] [address] [facility] [address] [place], [place] [phone] 10/14/2024 Missael Alloy [facility] [address] [place], [place] [phone] 03/15/2025 Missael Alloy Assessments Encounter Date Diagnosis (ICD Code) Assessment Notes Treatment Notes Treatment Clinical Notes Section Notes 10/12/2024 Essential hypertensi on (ICD-10 - I10) 10/12/2024 Pure hypercholesterolemia (ICD-10 - E78.00) 01/02/2025 Acute URI (ICD-10 - J06.9) Patient has cough and congestion medication at home. 03/14/2025 Lumbago with sciatic a, left side (ICD-10 - M54.42) 03/14/2025 Well adult exam (ICD -10 - Z00.00) 10/12/2024 Type 2 diabetes sarah itus without complication, without long-term current use of insulin (ICD-10 - E11.9) 10/12/2024 Anxiety (ICD-10 - F41.9) 03/14/2025 Left leg weakness (ICD-10 - R29.898) 03/14/2025 Morbid obesity (ICD- 10 - E66.01) 10/12/2024 Right shoulder pain (ICD-10 - M25.511) Plan Of Treatment Pending Test Test Name Order Date MRI : Spine, Lumbosacral, without contra st 03/14/2025 Next Appt Details Provider Name:Missael Cornelius ry, 04/17/2025 09:00:00 AM, [address], [address], [place], [place], [id number], Insurance Providers Payer Name Payer Address Payer Phone Subscriber Number Group Number Insured Name Patient Relationship to Insured Coverage Start Date Coverage End Date [facility] [address] [place] [address] [phone] [id number] Jessica Stanford Self - patient is the insured Medical (General) History Medical History History ICD Code Hypertension, 2010 Type 2 Diabetes, 2020 Depression Anxiety Insomnia Surgical History Surgery Date(Month/Year) Dental Surgery 06/2015 LT Chest Lipoma Removal 05/2018 Hospitalization History Reason Date(Month/Year) High Blood Pressure- [facility] ER 10/28/2014
--- OUTSIDE RECORDS SUMMARY | 2025-03-29 08:34 | XMS_ITS | Data Portability ---
Author Organization [facility] RENU Metcalf [facility] CLOSED Address [address] [facility] [place] [address] Assessment No assessment recorded. Plan of Treatment Reminders Order Date Submit Date Provider Last Modified By Organization Details Last Modified Time Details Appointments DERM VISIT 025 02:40PM VALERIA KELSEY DO Not available Not available Not available Lab None recorde d. Referral None recorde d. Procedures None recorde d. Surgeries None recorde d. Imaging None recorde d. Medication Orders None recorde d. Patient TargetsNo targets recorded. Patient Instructions Encounter Date Encounter Id Patient Instructions Last Modified By Organization Details Last Modified Time 09/21/2022 [id number] recent FNA of large cystic left thyroid nodule turned out to be benign; still some dysphagia and feeling of lump in throat; fiberoptic laryngoscopy shows normal anatomy and assured her there are no masses or lesions; assured her there is no sign of cancer; she would like to avoid surgery so will just monitor her thyroid closely; follow up in a year with repeat U/S or sooner if any concerns rvanmetre Not available 09/21/2022 14:57:24 Reason for Referral None Reported. Procedures Surgical History Date Name Laterality Status Provider Name and Address Organization Details Recorded Time 09/22/19 23 Laryngoscopy Flex completed AYANNA MCKINLEY MD [address] [place], [address], [facility] 09/21/2022 14:56:31 [facility] 13:18:59 excision of lipoma completed Lorena Smtih [facility] 09/21/2022 13:19:21 Imaging Results None recorded. Procedure Notes None recorded. Medical Equipment None Reported. Allergies Allergen ID Allergen Name Allergen Category Reaction Reaction Severity Criticality Documentation Date Start Date Code Code System Note Provider Name and Address Organization Details Recorded Time 904245 metformin medicatio n diarrhea Not available low 09/21/2022 6809 RxNorm Lorena [facility]ill [facility] 3 13:16:43 Medications Name Sig Start Date Stop Date Status Note LastModified by Organization Details LastModified Time quetiapine 25 mg tablet Take 1 tablet twice a day by oral route. active Not Available Not Available No t Available celecoxib 200 mg capsule TAKE 1 CAPSULE BY MOUTH ONCE DAILY active Not Available Not Available No t Available medroxyprogest erone 10 mg tablet Take 1 tablet every day by oral route. active Not Available Not Available No t Available metformin 500 mg tablet Take 1 tablet twice a day by oral route. active Not Available Not Available No t Available citalopram 40 mg tablet Take 1 tablet every day by oral route. active Not Available Not Available No t Available nifedipine ER 30 mg tablet,extende d release active Not Available Not Available No t Available amlodipine 10 mg tablet Take 1 tablet every day by oral route. active Not Available Not Available No t Available buspirone 7.5 mg tablet active Not Available Not Available No t Available metformin ER 500 mg tablet,extende d release 24 hr active Not Available Not Available Not Available Clomid 50 mg tablet Take 1 tablet every day by oral route. active Not Available Not Available No t Available cyclobenzaprin e 5 mg tablet TAKE 1 TO 2 TABLETS BY MOUTH THREE TIMES DAILY NEEDED active Not Available Not Available No t Available BinaxNOW COVID-19 Ag Self Test kit TEST DIRECTED TODAY active Not Available Not Available No t Available Vitals Date Recorded Body weight Body mass index (BMI) Body height Body temperature Heart rate Oxygen saturation Systolic And Diastolic Provider Name and Address Organization Details Last Updated DateTime 3 954597. 78 g 43 kg/m2 175.26 cm 98.3 [degF] 92 /min 97 % 148/100 mm[Hg] Sagrario Lomax [facility] 3 14:28:37 Social History Question Answer Notes LastModified by Organizat ion Details LastModified Time Tobacco Smoking Status Current Every Day Smoker Lorena Thomasill [facility] 09/21/2022 13:18:39 At What Age Did You Start Smoking Tobacco? 16 Information not available 09/21/2022 How Much Tobacco Do You Smoke? 1 PPD Information not available 09/21/2022 Has Tobacco Cessation Counseling Been Provided? No Information not available 09/21/2022 How Many Years Have You Smoked Tobacco? 16 Information not available 09/21/2022 Sex: Unknown Functional Status Question Answer Note LastModified by Organization D etails LastModified Time Do you or have you ever used any other forms of tobacco or nicotine? No Information not available 09/21/2022 What is your level of alcohol consumption? None Information not available 09/21/2022 Mental Status None recorded. Family History Relationship Description Onset Age of this Age Resolved Age Notes LastModified by Organization Details LastModified Time Father Hypertensive disorder Not available 2022 13:17:15 Father Diabetes mellitus Not available 2022 13:17:22 Medical History Condition Response Depression Y Anxiety Disorder Y Diabetes Y Sleep Disorder Y Hypertension Y Gynecological HistoryNo gynecological history recorded. Obstetrics History GPAL:G 0 P 0 0 0 0 Past Encounters Encounter ID Performer Location Encounter Start Date Encounter Closed Date Diagnosis/Indication Diagnosis SNOMED-CT Code Diagnosis ICD10 Code Diagnosis IMO Codes Diagnosis Note [id number] MD [facility] [address] [place] [address] 09/21/2022 14:11:56 09/21/2022 15:17:00 Thyroid nodule 955253724 E04.1 Multinodular goiter 2375 90942 E04.2 Dysphagia 10271747 R13.1 0 Health Concerns Section Related Observation LastModified by Organization Detai ls LastModified Time None Recorded Concern Status LastModified by Organization Details LastModified Time None Recorded Advance Directives Directive None Recorded Payers Insurance Date Sequence Insurance Name Policy Number Policy Saldivar Covered Member ID Saldivar Member ID Guarantor Name 09/21/2022 1 [place] [id number] Jessica Stanford [id number] Jessica Stanford Notes Date Note Type Note Provider Name and Address Organization Details Recorded Time 09/21/2022 text/html Jessica is a 32 year old here today for a consultation of her thryoid at the request of Dr. Nayeli Wilson. AYANNA MCKINLEY MD [address] [place] [address], [phone], [facility] 09/21/2022 14:57:58 OBGyn Episode No OBEpisode recorded.
--- OUTSIDE RECORDS SUMMARY | 2025-03-29 08:34 | XMS_ITS | Clinical Summary ---
Author Organization [facility] Address [address] [place] [id number] Care Team Providers Care Hammer Repairer Name Role Phone System, Provider Not In Primary Care Provider Un available Medications amLODIPine (NORVASC) 10 mg tablet Take 10 mg by mouth nightly. Active metFORMIN (GLUCOPHAGE) 500 MG tablet Take 500 mg by mouth nightly. Active citalopram (CELEXA) 20 MG tablet Take 20 mg by mouth nightly. Active QUEtiapine (SEROQUEL) 25 MG tablet Take 25 mg by mouth nightly. Active Norethindrone Acet-Ethinyl Est (MICROGESTIN 1/20 PO) Take 1 tablet by mouth nightly. Active Active Problems Problem Noted Date Diagnosed Date Uterine polyp 02/07/2023 Hypertension 02/07/2023 Diabetes mellitus 02/07/2023 Obesity 02/07/2023 Abnormal uterine bleeding 02/07/2023 Social History Tobacco Use Types Packs/Day Years Used Date Smoking Tobacco: Former Cigarettes 15.4 0 01/12/2007 - 06/14/2022 Smokeless Tobacco: Never Tobacco Cessation:Counseling Given: Not Answered Alcohol Use Standard Drinks/Week Comments Never 0 (1 standard drink = 0.6 oz pur e alcohol) Comments Unknown Sex and Gender Information Value Date Recorded Sex Assigned at Not on file Legal Sex Female 1:35 PM EDT Gender Identity Not on file Sexual Orientation Not on file Last Filed Vital Signs Vital Sign Reading Time Taken Comments Blood Pressure 150/94 02/08/2023 2:45 PM EDT Pulse 79 02/08/2023 2:45 PM EDT Temperature 37.2 C (98.9 F) 02/08/2023 2:45 PM EDT Respiratory Rate 16 02/08/2023 2:45 PM EDT Oxygen Saturation 96% 02/08/2023 2:45 PM EDT Inhaled Oxygen Concentration - - Weight 125.1 kg (275 lb 12.8 oz) 2022 11:58 AM EDT Height 175.3 cm (5' 9 ) 02/08/2023 11:5 8 AM EDT Body Mass Index 40.73 02/08/2023 11:58 AM EDT Plan of Treatment Health Maintenance Due Date Last Done Comments Hepatitis B (HepB) Vaccine ( 1 of 3 - 19+ 3-dose series) 2007 Pneumococcal Vaccines 6-49 y o Risk (1 of 2 - PCV) 2007 Cervical Cancer Screening 2009 HPV Vaccine (1 - 3-dose SCDM series) 2015 Diabetic ACEI/ARB For Patien ts with CKD or Hypertension 02/07/2023 Diabetic Eye Exam 02/07/2023 Diabetic Foot Exam 02/07/2023 Diabetic Hemoglobin A1C 02/07/2023 Diabetic Lipid Panel 02/07/2023 Diabetic Presence of Statin 02/07/2023 Diabetic Urine Microalbumin 02/07/2023 Diabetic Creatinine Level 02/09/2024 02/08/2023 Annual SDOH Screening 05/09/2024 Influenza Vaccine (#1) 2025 2, 02/25/2020 Tdap/Td Vaccine >11 yo (2 - Td or Tdap) 01/19/2032 01/18/2022 Haemophilus Influenzae Type B (Hib) Vaccine Aged Out No longer eligible b ased on patient's age to complete this topic Hepatitis A (HepA) Vaccine Aged Out N o longer eligible based on patient's age to complete this topic Meningococcal ACWY Aged Out No longer eligible based on patient's age to complete this topic Polio (IPV) Aged Out No longer eligi ble based on patient's age to complete this topic Rotavirus (RV) Vaccine Aged Out No lo nger eligible based on patient's age to complete this topic Procedures Procedure Name Priority Date/Time Associated Diagnosis Comments BASIC METABOLIC PANEL (BMP) STAT 02/08/2023 11:35 AM EDT from Last 3 Months or Most Recently Relevant to Health Maintenance Results * Basic Metabolic Panel (BMP) (02/08/2023 11:35 AM EDT) Sodium 139 136 - 145 mmol/L 02/08/2023 12:08 PM [facility] Comment: (note) Excess protein and/or lipids can falsely decrease sodium levels (pseudo hyponatremia). Potassium 3.9 3.5 - 5.1 mmol/L 02/08/2023 12:08 PM [facility] Comment:Falsely elevated pot assium can occur in patients with high WBC or platelet counts. Chloride 105 98 - 107 mmol/L 02/08/2023 12:08 PM [facility] Comment: (note) Falsely elevated chloride levels can be seen in patients taking medications which contain bromide. Carbon Dioxide 24 22 - 29 mmol/L 02/08/2023 12:08 [facility] Anion Gap 10 5 - 13 (arb'U) 02/08/2023 12:08 PM [facility] Comment: (note) Calculation- Na - (Cl + CO2) Glucose 123 71 - 139 mg/dL 02/08/2023 12:08 PM [facility] Comment: (note) Reference range based on inpatient hypo/hyperglycemic treatment levels. A random glucose =/>200 is concerning for poor control. Blood Urea Nitrogen (BUN) 10 7 - 19 mg/dL 02/08/2023 12:08 PM [facility] Creatinine-Blood 0.72 0.55 - 1.02 mg/dL 02/08/2023 12:08 PM [facility] BUN/Creatinine Ratio 13.9 RATIO 02/08/2023 12:08 PM [facility] Estimated GFR (Cr) 112 >60 /1.73 m2 02/08/2023 12:08 PM [facility] Comment: (note) eGFR calculated based on IDMS traceable, enzymatic creatinine method using the CKD-EPI 2020 equation. Calcium 9.1 8.4 - 10.2 mg/dL 02/08/2023 12:08 PM [facility] Plasma BLOOD SPECIMEN FROM PATIENT / Unknown 02/08/2023 11:35 AM EDT 02/08/2023 11:42 AM EDT us Loni Bernal MD LAB BLOOD ORDERABLES Final Res ult [facility] [address] [place], [place] [id number] [facility] [address] [place] [address] from Last 3 Months or Most Recently Relevant to Health Maintenance Insurance Care Teams Hammer Repairer Relationship Specialty Start Date End Date System, Provider Not In PCP - General 02/08/23
--- OUTSIDE RECORDS SUMMARY | 2025-03-29 08:34 | XMS_ITS | Clinical Summary ---
Author Organization Healthcare Address [address] [id number] Care Team Providers Care Logistics Program Manager Name Role Phone Unavailable Primary Care Provider Unavailabl e Social History Tobacco Use Types Packs/Day Years Used Date Smoking Tobacco: Never Assessed Comments Unknown Sex and Gender Information Value Date Recorded Sex Assigned at Female 03/13/2025 10:59 AM EST Legal Sex Female 10:46 AM EST Gender Identity Female 03/13/2025 10:59 AM EST Sexual Orientation Not on file Plan of Treatment Upcoming Encounters Date Type Department Care Team (Late st Contact Info) Description 05/14/2025 2:30 PM EST Office Visit Obstetrics & Gynecology [address] [place] [address] Kassy Mercado, CUSTODIAL MANAGER [address] [place] [address] Health Maintenance Due Date Last Done Comments [facility]-Depression Screening 1988 [facility]-HIV Screening 1988 [facility]-Hepatitis C Screening 1988 [facility]-/Child/Adol SDOH Screenings 1988 [facility]-Varicella Vaccines (1 of 2 - 13+ 2-dose series) 2001 [facility]- SDOH Screenings 2006 [facility]-Adult SDOH Screenings 2006 [facility]-Hepatitis B Vaccines (1 of 3 - 19+ 3-dose series) 2007 [facility]-Pap Smear 2009 HPV Vaccines (1 - 3-dose SCDM series) 2015 [facility]-Cervical Cancer Screening 2018 [facility]-HPV/Cotest 2018 [id number] Vaccine (3 - season) 2025 06/18/2020, 05/21/2020 [facility]-Influenza Vaccine (#1) 01/07/202501/22, 01/18/2022, 02/25/2020 [facility]-DTaP,Tdap,and Td Vaccines (2 - Td or Tdap) 01/19/2032 01/18/2022 [facility]-Zoster Vaccines (1 of 2) 2038 [facility]-HIB Vaccines Aged Out No longer e ligible based on patient's age to complete this topic [facility]-Hepatitis A Vaccines Aged Out No longer eligible based on patient's age to complete this topic [facility]-IPV Vaccines Aged Out No longer e ligible based on patient's age to complete this topic [facility]-Pneumococcal Vaccine: Pediatrics (0 to 5 Years) and At-Risk Patients (6 to 49 Years) Aged Out No longer eligible b ased on patient's age to complete this topic [facility]-Rotavirus Vaccines Aged Out No lo nger eligible based on patient's age to complete this topic Insurance SAMANTHA
--- NOTE | 2025-03-29 08:35 | MR_ITS ---
FINAL REPORT CLINICAL HISTORY: LUMBAGO WITH SCIATICA. low back pain worse on left side. left leg pain COMPARISON: None FINDINGS: Multiplanar MR imaging of the lumbar spine was performed without contrast. On the sagittal T2-weighted images, there is abnormal decreased signal in the L1-2, L3-4, L4-5 and L5-S1 disc space levels. The vertebrae are of normal height. The vertebral alignment is normal. L1-2: There is no significant canal stenosis or neural foraminal narrowing. L2-3: There is no significant canal stenosis or neural foraminal narrowing. L3-4: A moderate annular bulge is present with moderate bilateral facet hypertrophy, moderate bilateral neural foraminal narrowing and moderate to severe canal stenosis, best seen on image #21 of series 5. L4-5: A moderate annular bulge is present with endplate hypertrophy and facet hypertrophy. There is moderate central canal stenosis and mild to moderate bilateral neural foraminal narrowing. L5-S1: A mild annular bulge is present with mild bilateral neural foraminal narrowing. IMPRESSION: There is no significant canal stenosis or neural foraminal narrowing. Reviewed, Interpreted and Dictated by Mait Monique MD Transcribed by Marce Tineo Authenticated and [facility]
== END 2025-03-29 23:59 | disposition home or self-care (01) ==
LOC: RAD 08:32
PROVIDERS: PCP Family Medicine; Visit Provider Family Medicine
DX: M54.42 Lumbago with sciatica, left side (principal); R29.898 Other symptoms and signs involving the musculoskeletal system
CPT/HCPCS: 72148